=== PATIENT | male | born 1945 | race Caucasian/White ===

== ENCOUNTER 2024-02-02 09:23 | Day surgery (SDC) | payer OTHER ==
[2024-01-30 11:38] LABS: Absolute Eosinophils 0.3 K/uL (0-0.5); Absolute Lymphocytes (CBC) 1.1 K/uL (0.7-4.9); Absolute Monocytes 0.7 K/uL (0.1-1.3); Absolute Neutrophil 3.3 K/uL (1.8-8.0); Basophils % 0.7 % (0-1.3); Eosinophils % 4.8 % (0-4.4); Hematocrit 31.7 % (39.6-49.0); Hemoglobin 10.4 g/dL (13.6-17.9); Lymphocytes % 20.3 % (15.3-44.8); MCH 33.3 pg (27.0-35.0); MCHC 32.9 g/dL (32.0-36.0); MCV 101.1 fL (80-100); MPV 9.9 fL (7.6-11.3); Monocytes % 12.4 % (3.3-12.3); Neutrophils % 61.8 % (41.7-73.7); Nucleated Red Blood Cells % 0.1 % (0-0); Platelets 143 thou/uL (152-406); RBC Red Blood Cell Count 3.14 M/uL (4.33-5.43); Red Cell Distribution Width 13.8 % (12.1-15.2)
[2024-01-30 11:52] LABS: Anion Gap 7.6 mEq/L (5.0-15.0); Potassium 4.6 mEq/L (3.5-5.1)
--- NOTE | 2024-01-31 13:11 | EKG ---
Test Date: 2024-01-30 Test Time: 10:30:27 [employer] Estate [employer] Analyst: PREO MEASUREMENT RESULTS: Intervals: Rate: 56 PA: 196 QRSD: 94 QT: 462 QTc: 445 [place]: P: 57 PA: 196 QRS: 75 T: 54 INTERPRETIVE STATEMENTS: Sinus bradycardia with premature atrial complexes Otherwise normal ECG No previous ECG available for comparison Electronically Signed On 01-31-24 13:06:26 CDT by Claus Oneil
[2024-02-02] MEDS ORDERED: Ringers Lactate 1,000 ML IV ONE (09:40)
[2024-02-02] MEDS ORDERED: CEFAZOLIN SODIUM 2 GM/VIAL ONE (11:07)
[2024-02-02] MEDS ORDERED: propofoL 200 MG/20 ML VIAL IV ONE (11:27)
[2024-02-02] MEDS ORDERED: ONDANSETRON 4 MG/2 ML VIAL ONE (11:28)
[2024-02-02] MEDS ORDERED: LIDOCAINE 2% MPF 5 ML VIAL ONE (11:28)
[2024-02-02] MEDS ORDERED: FENTANYL CITR 100 MCG/2 ML ONE (11:29)
[2024-02-02] MEDS ORDERED: BUPIVACAINE 0.5% PF 10 ML VIAL ONE (11:34)
[2024-02-02] MEDS ORDERED: ROCURONIUM 50 MG/5 ML VIAL IV ONE (11:51)
[2024-02-02] MEDS ORDERED: POVIDONE-IODINE 5% EYE DROPS ONE (11:56)
[2024-02-02] MEDS ORDERED: dexAMETHasone 10 MG/ML VIAL ONE (12:09)
[2024-02-02] MEDS: LIDOCAINE HCL/EPINEPHRINE 20 ML MDV ONE (12:10)
[2024-02-02] MEDS ORDERED: CHLORHEXIDINE 0.12% 473ML BOT MM ONE (12:12)
[2024-02-02] MEDS ORDERED: SUGAMMADEX SODIUM 200 MG/2 ML VIAL IV ONE (12:51)
--- NOTE | 2024-02-02 19:20 | P.OP ---
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 The mucosal portion of the left lower lip was injected and a left infraorbital nerve block was performed using lidocaine with epinephrine. Avoidance of the vermilion border was made so that if a vertical wedge excision was required, identification of the vermilion border would not be obscured by vasoconstriction. The lower face was prepped with Betadine and draped in a sterile fashion. The mouth was cleaned using Peridex. The exophytic lesion on the lower lip was identified and was approximately 5mm in diameter. A 4 mm diameter margin was designed circumferentially and a needlepoint electrocautery was used to excise through the skin and mucosa around the lesion. A suture was placed at the vermilion/skin border marking 12:00 for pathology orientation. The lesion was carefully elevated from the underlying soft tissues. The lesion did not appear to grossly involve the musculature and was elevated off without injury to the labial artery. The specimen was completely extirpated and sent to pathology for frozen section analysis. While awaiting microscopic diagnosis and margin status, the wound was carefully examined. The extended length of the lower lip was approximately 10 cm with the width of defect measuring 2 cm. Consideration was made for transverse versus vertical wedge resection and options for closure were considered. The patient wears a lower partial denture and was noted to have a short vermilion lip. In c onsideration of the options, I elected for a mucosal advancement over the surgical defect rather than a wedge resection which would have required partial excision of the orbicularis ángel muscle and disruption of the labial artery. Since the structures were not involved with the tumor, I felt maintaining the integrity of the muscle and vasculature were in the patient's best interest. Bovie electrocautery was used to carefully elevate the skin and mucosa around the defect. Pathology confirmed a squamous or verrucous appearing lesion with margins uninvolved by frozen section. The mucosa was then advanced anteriorly over the defect and the area was closed in a layered fashion using 4-0 Vicryl deep sutures and 4-0 chromic running suture. After closure, the face was cleaned and the incision was coated with antibiotic ointment. The patient was subsequently returned to care of anesthesia and extubated in the operating room and transferred to the recovery room in stable condition. Complications: None Implants: none Fluids & blood products: see anesthesia records Transferred to: Recovery Room Condition: Good
[2024-02-03 14:37] VITALS: BP 130/53; TEMP 97; O2SAT 97
== END 2024-02-02 14:39 | disposition home or self-care (01) ==
LOC: OR 09:23
PROVIDERS: ATTEND Otolaryngology
PROC: 0HB1XZZ Excision of Face Skin, External Approach (ICD-10-PCS; principal; 2024-02-02 10:45)
DX: C44.02 Squamous cell carcinoma of skin of lip (principal); Z87.891 Personal history of nicotine dependence
CPT/HCPCS: 40510; 93005; 85025; 80048; 36415; 88331; 88332; 88305; J2704; J2001; J3010; J1100; J2405; J7120; 88304